=== PATIENT | female | born 1970 | race Two or more races ===

== ENCOUNTER 2018-01-25 09:45 | Day surgery (SDC) | payer BC ==
[2018-01-24 19:18] VITALS: BMI 37.5
[2018-01-25] MEDS ORDERED: PROPOFOL 20 ML ONE (10:54)
[2018-01-25] MEDS ORDERED: MIDAZOLAM HCL 2 MG/2 ML SINGLE DOSE VIAL ONE (10:54)
[2018-01-25] MEDS ORDERED: LIDOCAINE HCL/PF 2% SDV 5ML VIAL ONE (10:56)
[2018-01-25] MEDS ORDERED: VASOPRESSIN 20 UNITS/ML VIAL IV ONE (11:04)
[2018-01-25] MEDS ORDERED: ceFAZolin SODIUM 1 GM VIAL ONE (11:52)
[2018-01-25] MEDS ORDERED: ceFAZolin SODIUM 1 GM VIAL IVPB ONE (11:53)
[2018-01-25] MEDS ORDERED: DEXAMETHASONE SOD PHOSPHATE 4 MG/1 ML VIAL ONE (11:54)
[2018-01-25] MEDS ORDERED: KETOROLAC TROMETHAMINE 30 MG/1 ML VIAL ONE (12:10)
[2018-01-25] MEDS ORDERED: ELECTROLYTE-148 SOLN 1,000 ML IV SCH (12:30)
--- NOTE | 2018-01-25 12:30 | OP ---
Operative Note - Note: Operative Date: 01/25/18 Pre-Operative Diagnosis: LUZ Operation: Mid urethral sling placement Findings: normal urethra isd Post-Operative Diagnosis: Same as Pre-op Surgeon: Michael Willoughby MD. Anesthesia: General Estimated Blood Loss (mls): 20 Drains & Tubes with Location: martino to sd Operative Report Dictated: Yes
[2018-01-25] MEDS ORDERED: ACETAMINOPHEN 325 MG TABLET (FP) PO PRN (12:32)
[2018-01-25] MEDS ORDERED: ONDANSETRON 4 MG/2 ML VIAL IVPUSH PRN (12:32)
[2018-01-25] MEDS ORDERED: oxyCODONE HCL 5 MG TABLET PO PRN (12:32)
[2018-01-25] MEDS ORDERED: LACTATED RINGERS SOLUTION 1,000 ML IV SCH (12:45)
[2018-01-25 16:57] VITALS: BP 120/75; PULSE 68; TEMP 97.7
--- NOTE | 2018-01-27 10:30 | OP ---
DATE OF OPERATION: 01/25/2018 PREOPERATIVE DIAGNOSIS: Stress incontinence. POSTOPERATIVE DIAGNOSIS: Stress incontinence. PROCEDURE: Mini urethral sling placement. HISTORY: This is a pleasant, 47-year-old female with a long history of urinary stress incontinence. Preop evaluation determined leak point pressure approximately 60 mmHg. After discussing treatment options including the above-stated procedure, risks and benefits were discussed in detail. All questions were answered. The patient agreed to undergo the above-stated procedure. BRIEF OPERATIVE NOTE: Patient brought to the operating room, placed in supine position. Once general anesthesia was administered, the patient was transferred to the dorsal lithotomy position, prepped and draped in standard sterile fashion. Intravenous antibiotics were given. At this time, a Cote catheter was placed to suction drainage. Approximately 8 mL of lidocaine with epinephrine was injected approximately 1 cm proximal to the urethral meatus. A hydrodissection was performed. At this time, using an Allis clamp, the edge was lifted, and a scalpel was used to incise the anterior vaginal wall. The anterior vaginal wall was then dissected free from periurethral/perivesical tissue. The obturator foramen was identified using sharp and blunt dissection. At this time, the Altis sling was placed in the standard position, being sure to not be in a kinked position and was flat against the urethra. Minimal amount of tension was applied. At this time, the anterior vaginal wall was closed using a 2-0 Vicryl suture. There was no evidence of significant bleeding. A vaginal packing was applied. A Cote was placed to straight drainage. Patient was transferred to the recovery room in stable and satisfactory condition. Jaky [id number]
== END 2018-01-25 17:00 | disposition home or self-care (01) ==
LOC: JASU-SURG 09:45
PROVIDERS: ATTEND Urology
PROC: 0TSD0ZZ Reposition Urethra, Open Approach (ICD-10-PCS; principal; 2018-01-25 11:00)
DX: N39.3 Stress incontinence (female) (male) (principal)
CPT/HCPCS: 84703; 94760

== ENCOUNTER 2019-09-16 13:22 | Emergency (ER) | payer BC ==
[2019-09-16 13:41] VITALS: PULSE 79; BMI 29.0
[2019-09-16] MEDS ORDERED: ACETAMINOPHEN 1000 MG/100 ML VIAL (NON FORMULARY) IVPB ONE (13:51)
[2019-09-16] MEDS ORDERED: LACTATED RINGERS SOLUTION 1000 ML INFUS.BAG IV ONE (13:51)
[2019-09-16] MEDS ORDERED: FAMOTIDINE 20 MG/50 ML IVPB 20 MG/50 ML MG IVPB ONE ×2 (13:51→14:01)
[2019-09-16] MEDS ORDERED: ACETAMINOPHEN INJECTION 100 ML IVPB ONE (14:01)
--- NOTE | 2019-09-16 14:16 | PDOC ---
History of Present Illness - General Chief Complaint: Vomiting/Diarrhea Stated Complaint: VOMITING Time Seen by Provider: 09/16/19 13:49 History Source: Patient, Family (son) Exam Limitations: Language Barrier - History of Present Illness Initial Comments: 09/16/19 14:13 49y F with no significant PMH presenting to ED with complaints of abdominal pain , n/v since this AM. She says around 0330 she started to feel LUQ abdominal pain. She then started throwing up x10 at 0530 (nbnb). She says that she has not vomited since but still has the pain. She states that she also has this burning/gas sensation in her esophagus usually after she eats. Denies fever, chills, bloody stools, chest pain, sob, back pain, urinary symptoms. She had a boiled egg and plantains before the pain started. PMD: Nena ___ PMH: none PSH: none Meds: none Allergies: iodine Past History - Past Medical History Allergies/Adverse Reactions: Allergies Allergy/AdvReac Type Severity Reaction Status Date / Time iodine Allergy Verified 01/25/18 10:37 Home Medications: Ambulatory Orders Famotidine [Pepcid -] 20 mg PO BID #14 tablet 09/16/19 Anemia: No Asthma: No Cancer: No Cardiac Disorders: No CVA: No COPD: No CHF: No Dementia: No Diabetes: No GI Disorders: No Disorders: No HTN: No Hypercholesterolemia: No Liver Disease: No Seizures: No Thyroid Disease: No - Surgical History Abdominal Surgery: Yes Appendectomy: No Cardiac Surgery: No Cholecystectomy: No Lung Surgery: No Neurologic Surgery: No Orthopedic Surgery: No - Immunization History Immunization Up to Date: No - Psycho Social/Smoking Cessation Hx Smoking History: Never smoked Have you smoked in the past 12 months: No Information on smoking cessation initiated: No Hx Alcohol Use: No Drug/Substance Use Hx: No Substance Use Type: None Hx Substance Use Treatment: No Review of Systems - Review of Systems Constitutional: No: Symptoms Reported HEENTM: No: Symptoms Reported Respiratory: No: Symptoms reported Cardiac (ROS): No: Symptoms Reported ABD/GI: Yes: See HPI : No: Symptoms Reported Musculoskeletal: No: Symptoms Reported Integumentary: No: Symptoms Reported Neurological: No: Symptoms reported *Physical Exam - Vital Signs Last Vital Signs Temp Pulse Resp BP Pulse Ox 98.8 F 79 18 119/77 99 09/16/19 13:38 09/16/19 13:38 09/16/19 13:38 09/16/19 13:38 09/16/19 13:38 - Physical Exam General Appearance: Yes: Nourished, Appropriately Dressed, Obese. No: Apparent Distress HEENT: positive: EOMI, JERRY, Normal ENT Inspection Neck: positive: Trachea midline, Supple. negative: Lymphadenopathy (R), Lymphadenopathy (L) Respiratory/Chest: positive: Lungs Clear, Normal Breath Sounds. negative: Crackles, Rales, Rhonchi, Stridor, Wheezing Cardiovascular: positive: Regular Rhythm, Regular Rate, S1, S2. negative: Edema , JVD, Murmur Gastrointestinal/Abdominal: positive: Normal Bowel Sounds, Soft, Tenderness (LUQ ) Musculoskeletal: negative: CVA Tenderness Extremity: positive: Normal Capillary Refill. negative: Pedal Edema, Swelling, Calf Tenderness Integumentary: positive: Normal Color, Dry, Warm Neurologic: positive: divemaster II-XII NML intact, Fully Oriented, Alert, Normal Mood/ Affect, Normal Response, Motor Strength 01/08 ED Treatment Course - LABORATORY CBC & Chemistry Diagram: 09/16/19 14:25 09/16/19 14:25 Medical Decision Making - Medical Decision Making 09/16/19 15:57 49y F presenting to eD with comoplaints of luq pain, n/v. started today. vitals wnl. luq abdominal tenderness and epigastric tenderness. likely gastritis v. gerd v. pud. wiill obtain basic labs, lipase, lactate. trop. ekg. pepcid, zofran, ivf, ofirmev. does not require imaging at this time. 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 labs wnl. pt feeling better. not tender on repeat exam. is drinking water. will dc home. rx for pepcid. referrals to gi. Discharge - Discharge Information Problems reviewed: Yes Clinical Impression/Diagnosis: Gastritis Qualifiers: Gastritis type: unspecified gastritis Chronicity: acute Gastritis bleeding: without bleeding Qualified Code(s): K29.00 - Acute gastritis without bleeding Abdominal pain Qualifiers: Abdominal location: left upper quadrant Qualified Code(s): R10.12 - Left upper quadrant pain Condition: Improved Disposition: ELOPED - Additional Discharge Information Prescriptions: Famotidine [Pepcid -] 20 mg PO BID #14 tablet - Follow up/Referral Referrals: Sloan Cardoso MD [Staff Physician] - Mirtha Mann MD [Staff Physician] - Favio Osei DO [Staff Physician] - Mabel Gray DO [Staff Physician] - - Patient Discharge Instructions Patient Printed Discharge Instructions: DI for Gastritis, DI for Abdominal Pain -Adult Additional Instructions: Usted fue visto en la geno de emergencias hoy por dolor abdominal. El anlisis de kevin es normal. Lo ms probable es que tenga gastritis o ERGE. Se envi bernice receta para Pepcid a haq farmacia. Tmelo jovany se le indique. Arleybin recomiendo hacer bernice zenaida con un mdico GI. La informacin se proporciona a continuacin. Recomiendo mantenerse hidratado. Beber mucho lquido. No coma alimentos fritos, grasos o picantes alysha los prximos cherry. Regrese a la geno de emergencias si el dolor empeora, comienza a vomitar kevin , no tiene evacuaciones intestinales o si se desarrolla algn sntoma nuevo o preocupante. David You were seen in the emergency room today for abdominal pain. The blood work is normal. You most likely have gastritis or GERD. A prescription for Pepcid was sent to your pharmacy. Take as directed. I also recommend making an appointment with a GI doctor. Information is provided below. I recommend keeping yourself hydrated. Drink plenty of fluids. Do not eat any fried, fatty or spicy foods for the next few days. Come back to the emergency room if pain gets worse, you start vomiting blood, are not having any bowel movements or if any new or concerning symptom develops. Thank you Print Language: PALAUAN - Post Discharge Activity
[2019-09-16 15:23] LABS: BASO % 0.1 % (0-2.0); HEMATOCRIT 40.6 % (32.4-45.2); HEMOGLOBIN 13.2 GM/dL (10.7-15.3); LYMPH % 7.2 % (8-40); MCH 29.2 pg (25.7-33.7); MCHC 32.6 g/dl (32.0-36.0); MEAN CELL VOLUME 89.5 fl (80-96); MEAN PLT VOLUME 8.4 fl (7.5-11.1); MONO % 3.4 % (3.8-10.2); NEUT % 89.3 % (42.8-82.8); PLATELET COUNT 276 K/MM3 (134-434); RBC 4.53 M/mm3 (3.60-5.2); RDW 12.5 % (11.6-15.6); WHITE BLOOD COUNT 8.6 K/mm3 (4.0-10.0)
[2019-09-16 15:42] LABS: ALBUMIN 3.8 g/dl (3.4-5.0); ALK PHOS 72 U/L (45-117); ANION GAP 8 MMOL/L (8-16); BILIRUBIN,TOTAL 0.4 mg/dL (0.2-1); BLOOD UREA NITROGEN 13.1 mg/dL (7-18); CALCIUM 8.8 mg/dL (8.5-10.1); CHLORIDE 103 mmol/L (98-107); CO2 27 mmol/L (21-32); CREATININE 0.6 mg/dL (0.55-1.3); GLUCOSE,RANDOM 89 mg/dL (74-106); LIPASE 42 U/L (73-393); POTASSIUM 4.2 mmol/L (3.5-5.1); SGOT/AST 15 U/L (15-37); SGPT/ALT 31 U/L (13-61); SODIUM 138 mmol/L (136-145); TOT PROT 7.3 g/dl (6.4-8.2)
--- NOTE | 2019-09-16 15:50 | PDOC ---
Attending Attestation - Resident Resident Name: Mecca Demarco - ED Attending Attestation I have performed the following: I have examined & evaluated the patient, The case was reviewed & discussed with the resident, I agree w/resident's findings & plan, Exceptions are as noted - HPI HPI: 09/16/19 16:13 Ms. Ifeoma Diaz 49yo F with no significant PMH presenting to ED with complaints of abdominal pain, nausea and vomiting since this morning. Symptoms began early in the morning with LUQ pain Vomiting x 10 (nbnb) No fevers or chills Denies fever, chills, bloody stools, chest pain, sob, back pain, urinary symptoms. No recent travel No ill contacts No diarrhea - Physicial Exam PE: 09/16/19 15:49 Examined after medications given GENERAL: The patient is in no acute distress. ENT: Ears normal, nares patent, oropharynx clear without exudates. Moist mucous membranes. NECK: Normal range of motion, supple LUNGS: Breath sounds equal, clear to auscultation bilaterally. No wheezes, and no crackles. HEART:Regular rate and rhythm, normal S1 and S2 without murmur, rub or gallop. ABDOMEN: Soft, nontender EXTREMITIES: Normal range of motion, no edema. NEUROLOGICAL: Cranial nerves II through XII grossly intact. Normal speech. No focal neurological deficits. SKIN: Warm, Dry, normal turgor, no rashes or lesions noted. 09/16/19 16:17 - Medical Decision Making 09/16/19 16:18 Ms Ifeoma Diaz presents to the ER with a complaint of abdominal pain, nausea and vomiting 09/16/19 16:19 Laboratory Tests 09/16/19 09/16/19 14:25 14:25 WBC 8.6 Hgb 13.2 Hct 40.6 Plt Count 276 BUN 13.1 Creatinine 0.6 Troponin I < 0.02 Lipase 42 L No abdominal tenderness Pt states she feels well Tolerating po with no difficulty Will discharge to home Follow up with PMD
[2019-09-16 16:25] VITALS: BP 120/79; TEMP 98
--- NOTE | 2019-09-17 13:34 | EKG ---
Test Reason : Blood Pressure : / mmHG Vent. Rate : 077 BPM Atrial Rate : 077 BPM P-R Int : 154 ms QRS Dur : 086 ms QT Int : 358 ms P-R-T Axes : 055 -11 023 degrees QTc Int : 405 ms NORMAL SINUS RHYTHM POSSIBLE ANTERIOR INFARCT , AGE UNDETERMINED ABNORMAL ECG NO PREVIOUS ECGS AVAILABLE Confirmed by CARLTON AGRAWAL MD ([id number]) on 09/17/2019 1:34:18 PM Referred By: Confirmed By:CARLTON AGRAWAL MD
== END 2019-09-16 16:25 | disposition home or self-care (01) ==
LOC: JER 13:22
PROC: 3E033GC Introduction of Other Therapeutic Substance into Peripheral Vein, Percutaneous Approach (ICD-10-PCS; principal; 2019-09-16)
PROC: 3E033NZ Introduction of Analgesics, Hypnotics, Sedatives into Peripheral Vein, Percutaneous Approach (ICD-10-PCS; 2019-09-16)
DX: K29.00 Acute gastritis without bleeding (principal); Z88.8 Allergy status to other drugs, medicaments and biological substances
CPT/HCPCS: 36415; 80053; 83690; 84484; 85025; 93005; 93010; 99284-25; J0131

== ENCOUNTER 2023-02-22 09:16 | Emergency (ER) | payer BC ==
[2023-02-22 09:27] VITALS: BP 125/65; PULSE 75; RESP 18; TEMP 98.5; BMI 38.0
[2023-02-22] MEDS ORDERED: ACETAMINOPHEN 500 MG TABLET (FP) PO ONE (10:26)
[2023-02-22] MEDS ORDERED: ACETAMINOPHEN 325 MG TABLET (FP) ONE (10:41)
[2023-02-22 11:41] LABS: THROAT:GRP A STREP DETECTED (NOTDETECTED)
[2023-02-22] MEDS ORDERED: PENICILLIN G BENZATHINE 1,200,000 UNIT/2 ML PFS IM ONE ×2 (12:09→12:13)
== END 2023-02-22 12:27 | disposition home or self-care (01) ==
LOC: JER 09:16 → JERFT 09:16
DX: J02.0 Streptococcal pharyngitis (principal); R05.9 Cough, unspecified; M79.0 Rheumatism, unspecified; R50.9 Fever, unspecified; R09.81 Nasal congestion
CPT/HCPCS: 0241U-QW; 87651; 99284-25

== ENCOUNTER 2023-07-03 09:07 | Emergency (ER) | payer BC ==
[2023-07-03 09:17] VITALS: BP 125/72; PULSE 93; RESP 20; TEMP 99; BMI 29.9
[2023-07-03] MEDS ORDERED: ALBUTEROL SO4 0.083% IH SOL 2.5 MG/3 ML VIAL.NEB. NEB ONE ×2 (09:48→09:58)
[2023-07-03 10:47] LABS: BASO % 0.6 % (0-2.0); EOS % 4.6 % (0-4.5); HEMATOCRIT 35.2 % (32.4-45.2); HEMOGLOBIN 11.7 GM/dL (10.7-15.3); LYMPH % 20.7 % (8-40); MCH 28.9 pg (25.7-33.7); MCHC 33.3 g/dl (32.0-36.0); MEAN CELL VOLUME 86.5 fl (80-96); MEAN PLT VOLUME 7.7 fl (7.5-11.1); MONO % 5.7 % (3.8-10.2); NEUT % 68.4 % (42.8-82.8); PLATELET COUNT 338 10^3/uL (134-434); RBC 4.07 M/mm3 (3.60-5.2); RDW 12.7 % (11.6-15.6)
[2023-07-03 10:51] LABS: EPI CELLS 29 /uL (0-25.1); HYALINE CASTS 2 /uL (0-3.1); PH,URINE 6.5 (5.0-8.0); URINE APPEARANCE CLEAR; URINE BACTERIA 1475 /uL (0-1359); URINE BILIRUBIN NEGATIVE (NEGATIVE); URINE COLOR YELLOW; URINE GLUCOSE (UA) NEGATIVE (NEGATIVE); URINE KETONE NEGATIVE (NEGATIVE); URINE LEUK ESTERASE 2+ (NEGATIVE); URINE NITRITE NEGATIVE (NEGATIVE); URINE PROTEIN NEGATIVE (NEGATIVE); URINE RBC 18 /uL (0-23.9); URINE WBC 47 /uL (0-25.8)
[2023-07-03 11:00] LABS: POTASSIUM 4.3 mmol/L (3.5-5.1)
[2023-07-03 11:02] LABS: ALBUMIN 3.4 g/dl (3.4-5.0); BLOOD UREA NITROGEN 9.7 mg/dL (7-18); CALCIUM 8.7 mg/dL (8.5-10.1)
[2023-07-03 11:05] LABS: CREATININE 0.5 mg/dL (0.55-1.3)
[2023-07-03 11:07] LABS: BILIRUBIN,TOTAL 0.7 mg/dL (0.2-1); TOT PROT 6.8 g/dl (6.4-8.2)
== END 2023-07-03 12:11 | disposition home or self-care (01) ==
LOC: JER 09:07
PROC: 3E0F7GC Introduction of Other Therapeutic Substance into Respiratory Tract, Via Natural or Artificial Opening (ICD-10-PCS; principal; 2023-07-03)
DX: R50.9 Fever, unspecified (principal); R07.89 Other chest pain; R05.9 Cough, unspecified; R51.9 Headache, unspecified; R09.81 Nasal congestion; J20.8 Acute bronchitis due to other specified organisms; N30.00 Acute cystitis without hematuria
CPT/HCPCS: 36415; 71046-TC-FY; 80053; 81003; 85025; 87086; 93005; 93010; 99285-25